=== PATIENT | female | born 1965 | race Caucasian/White ===

== ENCOUNTER 2017-10-07 13:36 | Observation (INO) | payer OTHER ==
[~2017-10-07] VITALS: Ht 165.1 cm; Wt 66.0 kg
[~2017-10-07 13:36] MED LIST: CYMBALTA30 MG PO; CYMBALTA60 MG PO; ESTRACE1 MG PO; FERGON324 MG PO; FIORICET 50-301 EACH PO; PREMARIN1.25 MG PO; PROAIR HFA8.5 GM IH; TRIAMTERENE-HC1 EAC1 PO; VIBRAMYCIN100 MG PO; VITAMIN B122500 MCG PO; VITAMIN D-32000 UNI2 PO; ZOFRAN ODT4 MG PO
[2017-10-07 14:46] LABS: HEMATOCRIT 35.1 % (36.0-46.0); HEMOGLOBIN 12.7 G/DL (11.9-15.5); MCHC 36.2 G/DL (30.0-36.0); MCV 85.6 FL (83-99); PLATELET COUNT 138 K/uL (156-360); RBC DIS.WIDTH-CV 11.9 % (11.8-14.6); RBC DIS.WIDTH-SD 36.9 % (39-53); WHITE BLOOD COUNT 7.9 K/uL (4.1-10.2)
[2017-10-07 15:01] LABS: ALBUMIN 3.9 g/dL (3.2-4.8); CHLORIDE 104 mEq/L (99-109); POTASSIUM 3.1 mEq/L (3.7-5.4); SODIUM 138 mEq/L (136-147)
[2017-10-07 15:03] LABS: GLUCOSE 89 mg/dL (70-99); TOTAL PROTEIN 7.4 g/dL (6.4-8.3)
[2017-10-07 15:07] LABS: ALKALINE PHOSPHATASE 124 IU/L (3-129); GFR ESTIMATE (CALCULATED) > 59 mL/min/; TROP-I INTERPRETATION NEGATIVE; TROPONIN-I < 0.01 ng/mL (0.0-0.30)
[2017-10-07 15:08] LABS: UREA NITROGEN (BUN) 20 mg/dL (9-23)
[2017-10-07 15:09] LABS: AST (GOT) 50 IU/L (2-34)
[2017-10-07 15:10] LABS: ALT (GPT) 49 IU/L (3-49); LIPASE 25 U/L (1.0-51.0)
[2017-10-07] MEDS ORDERED: ZOFRAN4 MG PO (15:40)
[2017-10-07] MEDS ORDERED: ADVIL200 MG PO (15:40)
[2017-10-07 16:27] LABS: ERTH.SED.RATE 66 MM/HR (0-30)
[2017-10-07 16:30] VITALS: BP 128/61
[2017-10-07 16:36] LABS: C-REACTIVE PROTEIN 68.3 MG/L (0-10)
[2017-10-07 18:24] LABS: TROP-I INTERPRETATION NEGATIVE; TROPONIN-I < 0.01 ng/mL (0.0-0.30)
[2017-10-07 20:00] VITALS: BP 116/57
[2017-10-08 00:45] VITALS: BP 108/52
[2017-10-08 01:33] LABS: TROP-I INTERPRETATION NEGATIVE; TROPONIN-I < 0.01 ng/mL (0.0-0.30)
[2017-10-08 03:11] VITALS: BP 101/53
[2017-10-08 05:03] LABS: HEMATOCRIT 34.2 % (36.0-46.0); HEMOGLOBIN 11.7 G/DL (11.9-15.5); MCH 30.2 PG (29.0-34.0); MCHC 34.2 G/DL (30.0-36.0); MCV 88.1 FL (83-99); PLATELET COUNT 143 K/uL (156-360); RBC DIS.WIDTH-CV 12.1 % (11.8-14.6); RBC DIS.WIDTH-SD 38.9 % (39-53); RED BLOOD COUNT 3.88 M/uL (3.80-5.20); WHITE BLOOD COUNT 5.2 K/uL (4.1-10.2)
[2017-10-08 05:55] LABS: CHLORIDE 105 MEQ/L (99-109); GFR ESTIMATE (CALCULATED) > 59 mL/min/; POTASSIUM 3.5 MEQ/L (3.7-5.4); SODIUM 141 MEQ/L (136-147); UREA NITROGEN (BUN) 20 mg/dL (9-23)
[2017-10-08 05:57] LABS: GLUCOSE 142 mg/dL (70-99)
[2017-10-08 08:03] VITALS: BP 111/55
[2017-10-08 11:50] VITALS: BP 107/56
[2017-10-08] MEDS ORDERED: PREDNISONE10 MG PO (12:25)
== END 2017-10-08 13:45 | disposition home or self-care (01) ==
LOC: EME 13:36 → EDOF 15:41 → 4SOUTH 15:41 → EDOF 15:41 → ENRESERV 15:43 → 4SOUTH 16:31
PROVIDERS: Internal Medicine; Physician Assistant
DX: R07.89 Other chest pain (principal); M06.9 Rheumatoid arthritis, unspecified; R79.1 Abnormal coagulation profile; D50.9 Iron deficiency anemia, unspecified; J45.909 Unspecified asthma, uncomplicated; I10 Essential (primary) hypertension; F41.9 Anxiety disorder, unspecified; F32.9 Major depressive disorder, single episode, unspecified; Z91.19 Patient's noncompliance with other medical treatment and regimen; Z82.49 Family history of ischemic heart disease and other diseases of the circulatory system; Z88.6 Allergy status to analgesic agent; Z90.710 Acquired absence of both cervix and uterus; Z90.49 Acquired absence of other specified parts of digestive tract
CPT/HCPCS: 71046; 71275; 80048; 80053; 83690; 84484; 85027; 85379; 85651; 86140; 93005; 93970; 99202; 99281; 99285; G0378; J1644; J2405; J2930; J3010; J7040